=== PATIENT | male | born 1945 | race Caucasian/White ===

== ENCOUNTER 2017-04-25 08:01 | Outpatient (CLI) | payer OTHER | END 2017-04-25 08:02 | disposition short-term general hospital (02) | LOC: AMBL 08:01 | PROVIDERS: ATTEND Internal Medicine | DX: R06.9 Unspecified abnormalities of breathing (principal); R09.89 Other specified symptoms and signs involving the circulatory and respiratory systems; R09.02 Hypoxemia ==